=== PATIENT | male | born 1990 | race Caucasian/White ===

== ENCOUNTER → 2017-05-20 | Outpatient (CLI) | payer BC ==
[~2017-05-20] MED LIST: IOPAMIDOL 76% 75 ML INFUS BTL 75 ML ONE
[2017-05-20 16:11] LABS: PLATELET COUNT, AUTOMATED 272 K/uL (150-450)
--- NOTE | 2017-05-20 17:42 | RADIOLOGY IMAGING REPORT ---
FACILITY: [facility] - [place] PATIENT NAME: Glidardo Javed : 1990 MR: [id number] V: [id number] EXAM DATE: ORDERING PHYSICIAN: TONIA RINCON TECHNOLOGIST: Location: [facility] Patient: Gildardo Javed : 1990 Visit/Account:[id number] Date of Sevice: 05/20/2017 EXAMINATION: CT abdomen with IV contrast CT pelvis with IV contrast HISTORY: Right lower quadrant pain, positive psoas sign, rebound pain right lower and left lower qu adrants. Low-grade fever. COMPARISON: None. TECHNIQUE: Axial images were taken through the abdomen and pelvis with intravenous contrast. Sagitt al and coronal reformatted images are also submitted. CONTRAST: 75 mL of IV Isovue-[id number]. One of the following dose optimization techniques was utilized in the performance of this exam: Autom ated exposure control; adjustment of the mA and/or kV according to the patient's size; or use of an i terative reconstruction technique. Specific details can be referenced in the facility's radiology C T exam operational policy. FINDINGS: Liver/biliary: Negative. Pancreas: Negative. Spleen: Small splenule. Adrenal glands: Negative. Kidneys: Negative. Pelvic structures: Negative. Bowel: 7 cm length of wall thickening and submucosal edema of the terminal ileum. There is a cluster of small bowel loops in the right lower quadrant just below the terminal ileum which are fluid-filled with mild wall enhancement. The appendix is not visualized. Peritoneum/retroperitoneum/mesenteries: Mild inflammation in the right lower quadrant adjacent to the abnormal distal and terminal ileum. Trace free fluid below the liver tip. Vessels: Vascular structures are patent. 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 Musculoskeletal/body wall: Subcentimeter benign bone island in the left iliac crest. There are a few small Schmorl's nodes in the lower thoracic spine. Lymph nodes: Negative. Lower chest: Negative. IMPRESSION: 1. Acute inflammatory or infectious terminal ileitis. Initial presentation of Crohn's disease is in t he differential. 2. Appendix is not visualized. These findings were discussed with TONIA RINCON at 05/20/2017 5:33 PM. Report Dictated By: Precious Collins MD at 05/20/2017 5:22 PM Report E-Signed By: Precious Collins MD at 05/20/2017 5:37 PM WSN:[id number]
== END ==
LOC: LAB 15:44
PROVIDERS: ATTEND Nurse Practitioner Family
DX: R10.31 Right lower quadrant pain (principal); R50.9 Fever, unspecified; E78.5 Hyperlipidemia, unspecified; E03.9 Hypothyroidism, unspecified
CPT/HCPCS: 36415; 74177; 84443; 85025; Q9967; 82465; 83718; 84478

== ENCOUNTER → 2017-08-02 | Outpatient (CLI) | payer BC ==
--- NOTE | 2017-08-02 15:24 | RADIOLOGY IMAGING REPORT ---
FACILITY: [facility] - [place] PATIENT NAME: Gildardo Javed : 1990 MR: [id number] V: [id number] EXAM DATE: ORDERING PHYSICIAN: TONIA RINCON TECHNOLOGIST: Location: [facility] - [place] Patient: Gildardo Javed : 1990 Visit/Account:[id number] Date of Sevice: 08/02/2017 WRIST RIGHT 2 VIEW Indication: Lateral wrist pain Comparison: None Available Findings: No evidence of fracture, dislocation, or acute osseous abnormality right wrist. No evidence of radiopaque foreign body. There is no focal soft tissue abnormality. IMPRESSION: 1.No acute osseous abnormality right wrist Report Dictated By: Ray Hinson at 08/02/2017 3:18 PM Report E-Signed By: Ray Hinson at 08/02/2017 3:18 PM WSN:[id number]
== END ==
LOC: RAD 12:42
PROVIDERS: ATTEND Nurse Practitioner Family
DX: M25.531 Pain in right wrist (principal)